=== PATIENT | female | born 1960 | race Caucasian/White ===

== ENCOUNTER → 2016-08-18 | Outpatient (CLI) | payer BC ==
--- NOTE | 2016-08-18 17:37 | US ---
EXAMINATION TYPE: US thyroid st tissue head/neck DATE OF EXAM: 08/18/2016 COMPARISON: NONE CLINICAL HISTORY: E04.1 Thyroid nodule. Prior US at [facility] per patient HX. GLAND SIZE: Right Lobe: 4.5 x 1.7 x 1.4 cm Overall Parenchyma: homogenous Left Lobe: 4.6 x 1.9 x 1.8 cm Overall Parenchyma: homogeneous Isthmus Thickness: 0.4 cm NODULES RIGHT: # of nodules measured on right: 1 1. 0.3 X 0.4 x 0.2 cm hypoechoic cystic nodule at the mid pole with well-defined margins. This nodu le is wider than tall and shows no intranodular vascularity. Prior size: no prior US here LEFT: # of nodules measured on left: 1 1. 1.8 X 1.5 x 1.3 cm isoechoic solid nodule at the mid pole with irregular margins. This nodule is wider than tall and shows no intranodular vascularity. ISTHMUS: # of nodules measured in the isthmus: 1 1. 0.4 X 0.2 x 0.2 cm hypoechoic cystic nodule at the left mid pole with well-defined margins. Thi s nodule is wide as is tall and shows no intranodular vascularity. Bilateral neck scanned, no evidence of lymphadenopathy. IMPRESSION: There is a dominant solid isoechoic oval-shaped nodule in the left thyroid lobe. I think this could b e followed conservatively with repeat ultrasound in 6 months to show stability.
== END | disposition home or self-care (01) ==
LOC: RADUSWWP 16:17
PROVIDERS: ATTEND Otolaryngology
DX: E04.2 Nontoxic multinodular goiter (principal)
CPT/HCPCS: 76536

== ENCOUNTER → 2016-08-20 | Outpatient (CLI) | payer BC ==
[2016-08-20 10:02] LABS: CH 30.9; CHCM 32.1; HCT 46.7 % (34.0-46.0); HDW 2.25; HGB 14.8 gm/dL (11.4-16.0); MCH 30.7 pg (25.0-35.0); MCHC 31.7 g/dL (31.0-37.0); MCV 96.7 fL (80.0-100.0); Mean Platelet Volume 6.7; RBC 4.83 m/uL (3.80-5.40); RDW 12.7 % (11.5-15.5); WBC 5.5 k/uL (3.8-10.6)
[2016-08-20 10:12] LABS: ALT 40 U/L (9-52); AST 31 U/L (14-36); Alkaline Phosphatase 74 U/L (38-126); Anion Gap 10 mmol/L; Blood Urea Nitrogen 12 mg/dL (7-17); Calcium 9.8 mg/dL (8.4-10.2); Carbon Dioxide 30 mmol/L (22-30); Chloride 105 mmol/L (98-107); Cholesterol 190 mg/dL (<200); Glucose 87 mg/dL (74-99); HDL Cholesterol 65 mg/dL (40-60); Non-African American GFR(MDRD) >60 (>60 ml/min/1.73 sqM); Potassium 4.5 mmol/L (3.5-5.1); Sodium 145 mmol/L (137-145); Total Bilirubin 0.4 mg/dL (0.2-1.3); Total Protein 6.9 g/dL (6.3-8.2); Triglycerides 97 mg/dL (<150)
== END | disposition home or self-care (01) ==
LOC: LABWHC1 09:21
PROVIDERS: ATTEND Nurse Practitioner Primary Care
DX: Z00.01 Encounter for general adult medical examination with abnormal findings (principal); I10 Essential (primary) hypertension; E04.1 Nontoxic single thyroid nodule
CPT/HCPCS: 36415; 80053; 80061; 82306; 84439; 84443; 84481; 85027

== ENCOUNTER → 2016-11-01 | Outpatient (CLI) | payer BC ==
--- NOTE | 2016-11-01 14:27 | US ---
EXAMINATION TYPE: US venous doppler duplex LE LT DATE OF EXAM: 11/01/2016 1:42 PM COMPARISON: NONE CLINICAL HISTORY: Pain of left calf M79.662. palpable medial upper calf 4 days no recent injury SIDE PERFORMED: left TECHNIQUE: The lower extremity deep venous system is examined utilizing real time linear array sonog liam with graded compression, doppler sonography and color-flow sonography. VESSELS IMAGED: External Iliac Vein (EIV) Common Femoral Vein Deep Femoral Vein Greater Saphenous Vein * Femoral Vein Popliteal Vein Small Saphenous Vein * Proximal Calf Veins (* superficial vessels) 5.3 x 2.2 x 3.1 non vascular mass in calf at palpable site, at the site of patient's palpable abnorma lity a large mixed echo mass is present. Left Leg: Negative for DVT IMPRESSION: Grayscale, color doppler, spectral doppler imaging performed of the deep veins of the lo wer extremities. There is normal flow, compressibility, vascular waveforms. No evident deep venous thrombosis at or above the left knee. Findings could be related to muscle tear, hematoma, follow-up clinically, consider MRI with and witho ut contrast the left leg for additional evaluation.
== END | disposition home or self-care (01) ==
LOC: RADUSWWP 12:54
PROVIDERS: ATTEND Internal Medicine
DX: M79.662 Pain in left lower leg (principal)

== ENCOUNTER → 2016-11-07 | Outpatient (CLI) | payer BC ==
[2016-11-07 16:31] LABS: Aty Lym Flag Moderate; Basophils % (A) 1 %; CH 31.5; CHCM 33.4; Eosinophils # (A) 0.1 k/uL (0-0.7); Eosinophils % (A) 1 %; HCT 44.2 % (34.0-46.0); HDW 2.38; HGB 14.1 gm/dL (11.4-16.0); Luc # (Auto) 0.72; Luc % (Auto) 9; Lymphocytes # (A) 2.4 k/uL (1.0-4.8); Lymphocytes % (A) 28 %; MCH 30.2 pg (25.0-35.0); MCHC 31.9 g/dL (31.0-37.0); MCV 94.6 fL (80.0-100.0); Mean Platelet Volume 7.9; Monocytes # (A) 0.7 k/uL (0-1.0); Monocytes % (A) 8 %; Neutrophils # (A) 4.6 k/uL (1.3-7.7); Neutrophils % (A) 54 %; RBC 4.67 m/uL (3.80-5.40); RDW 13.4 % (11.5-15.5); WBC 8.5 k/uL (3.8-10.6); WBC (Perox) 7.94
[2016-11-07 16:38] LABS: ALT 32 U/L (9-52); AST 25 U/L (14-36); Alkaline Phosphatase 80 U/L (38-126); Anion Gap 10 mmol/L; Blood Urea Nitrogen 19 mg/dL (7-17); Calcium 10.2 mg/dL (8.4-10.2); Carbon Dioxide 31 mmol/L (22-30); Chloride 101 mmol/L (98-107); Glucose 86 mg/dL (74-99); Non-African American GFR(MDRD) >60 (>60 ml/min/1.73 sqM); Potassium 4.4 mmol/L (3.5-5.1); Sodium 142 mmol/L (137-145); Total Bilirubin 0.4 mg/dL (0.2-1.3); Total Protein 7.9 g/dL (6.3-8.2)
== END | disposition home or self-care (01) ==
LOC: LABWHC1 15:30
DX: M79.605 Pain in left leg (principal)
CPT/HCPCS: 36415; 80053; 85025

== ENCOUNTER → 2016-11-15 | Outpatient (CLI) | payer BC ==
--- NOTE | 2016-11-15 18:03 | CONS ---
CONSULTATION REASON FOR CONSULTATION: Sleep apnea. REFERRING PHYSICIAN: Dr. Calderon. This is a 55-year-old female patient who was reported to have loud snoring. This has been noted by her . The patient also quit smoking on a few occasions. She had been seen by Dr. Calderon, who suggested a sleep evaluation. She goes to bed around 9 p.m., wakes up at 4 a.m. in the morning. She works for the [employer]. 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 She drives from [place] to [place] every day back and forth. She does not fall asleep while driving. After coming home, she does not feel sleepy while watching TV or reading a book. She is able to fulfill her job requirements at the [employer] without having to fall asleep at all. She wakes up tired during the day. However, this is essentially tiredness rather than sleepiness. Her current Hurst score is 6. Denies having any insomnia. No choking or gasping sensation at nighttime. No grinding of the teeth. She has no dry mouth in the morning. No anxiety or panic attacks. No palpitation. No nocturnal heartburn. No seizure activity. PAST MEDICAL HISTORY: Hypertension. PAST SURGICAL HISTORY: D&C. DRUG ALLERGIES: 1. PENICILLIN. 2. POLLEN. MEDICATION: Medication includes: 1. Tere. 2. Amlodipine. 3. Lisinopril. SOCIAL HISTORY: The patient is a nonsmoker. No history of alcoholism. No history of IV drugs. FAMILY HISTORY: Brother has sleep apnea. REVIEW OF SYSTEMS: CONSTITUTIONAL: Negative for recent weight gain or weight loss. No fever, chills or night sweats. HEENT: Positive for snoring. No active allergy symptoms at this point. She has some occasional hoarseness. CARDIOVASCULAR: Negative for angina or chest pain or palpitations. PULMONARY: Negative for cough, sputum production, chest tightness or wheezing. GI: Negative for nausea, vomiting, abdominal pain or GI bleed. : Negative for dysuria, frequency, urgency. MUSCULOSKELETAL: Negative for arthritis. Skin is negative for rash, lesions or ulcers. Psych is negative for anxiety or depression. Rheumatologic is negative. Endocrinologic is negative. PHYSICAL EXAMINATION: CURRENT VITAL SIGNS: BP is 151/91, pulse 77, respirations 16, temperature 98.1, saturation 97% on room air. Weight is 156. Height is 68-1/4 inches. Neck size 15 inches. BMI 23.5. Hurst score is 6. GENERAL APPEARANCE: Calm, comfortable. HEENT: Overbite estimated to be around 1 cm. No crowding of the posterior pharynx. Hurst score is 1. LUNGS: Clear to auscultation. Heart sounds are regular rate and rhythm. Normal S1, S2. No S3, S4. No murmurs. ABDOMEN: Soft, nontender. No organomegaly. No direct tenderness, rebound tenderness or guarding. EXTREMITIES: No edema. No cyanosis or clubbing. Skin is negative for ulcers, wounds or lesions. NEURO: Alert and oriented x3. No focal neurological deficits. SKELETAL: No joint deformities or any active arthritis or kyphoscoliosis. PHYSICAL EXAMINATION: VITAL SIGNS: BP is 151/91, pulse 77, respirations 12 temperature 98.1. Neck size is 15. BMI is 23.5. Hurst score is 6. IMPRESSION: 1. Loud snoring. 2. Chronic fatigue with limited sleepiness. Hurst score is 6. 3. Suspected obstructive sleep apnea. 4. Hypertension. PLAN: 1. Proceed with home sleep study testing. Overall suspicion for severe symptomatic obstructive sleep apnea is quite low in this patient. 2. Implement good sleep hygiene measures. Will continue to follow. MMODL / IJN: [id number] /
== END | disposition home or self-care (01) ==
LOC: SLEEP 14:58
PROVIDERS: ATTEND Internal Medicine Critical Care Medicine
DX: R53.82 Chronic fatigue, unspecified (principal); I10 Essential (primary) hypertension; R06.83 Snoring
CPT/HCPCS: 99211

== ENCOUNTER → 2017-03-01 | Outpatient (CLI) | payer BC ==
--- NOTE | 2017-03-01 15:58 | US ---
EXAMINATION TYPE: US thyroid st tissue head/neck DATE OF EXAM: 03/01/2017 COMPARISON: Thyroid ultrasound August 18, 2016 CLINICAL HISTORY: E04.1 Thyroid nodule. GLAND SIZE: Right Lobe: 5.4 x 1.6 x 1.6 cm Overall Parenchyma: homogenous Left Lobe: 5.3 x 2.2 x 2.0 cm Overall Parenchyma: homogeneous Isthmus Thickness: 0.3 cm NODULES RIGHT: # of nodules measured on right: 1 1. 0.3 X 0.2 x 0.3 cm hypoechoic solid nodule at the mid pole with irregular margins. This nodule is wider than tall and shows no intranodular vascularity. Prior size: 0.3 x 0.4 x 0.2 cm LEFT: # of nodules measured on left: 1 1. 1.8 X 1.9 x 1.8 cm isoechoic solid nodule at the mid pole with poorly defined margins. This nod ule is taller than wide and shows intranodular vascularity. Prior size: 1.8 x 1.5 x 1.3 cm ISTHMUS: # of nodules measured in the isthmus: 1 1. 0.3 X 0.2 x 0.3 cm hypoechoic solid nodule at the mid pole with well-defined margins. This nodu le is wider than tall and shows no intranodular vascularity. Prior size: 0.4 x 0.2 x 0.2 cm Bilateral neck scanned, no evidence of lymphadenopathy. Thyroid is upper limits of normal in size a few nodules redemonstrated, largest solid nodule left thy roid lobe is unchanged in size and appearance. IMPRESSION: Stable 1.9 cm hypoechoic solid nodule left thyroid lobe. No new greater than 1 cm solid or cystic nod ules are seen.
== END | disposition home or self-care (01) ==
LOC: RADUSWWP 15:14
PROVIDERS: ATTEND Otolaryngology
DX: E04.1 Nontoxic single thyroid nodule (principal)
CPT/HCPCS: 76536

== ENCOUNTER → 2017-04-04 | Outpatient (CLI) | payer BC ==
--- NOTE | 2017-04-04 16:27 | PN ---
PROGRESS NOTE This is a 56-year-old female patient diagnosed having moderate to severe obstructive sleep apnea with an AHI of 20, worse in the supine body position. This evaluation was done by a home sleep study that confirmed the diagnosis. Following that, the patient underwent a CPAP titration that was successful, and currently she is on a CPAP pressure of 10 cm of water. Today the patient is coming in for a compliancy check. Despite her appropriate and adequate use of CPAP, she is not seeing a significant difference in her fatigue and sleepiness. I checked her compliancy date and the patient has been averaging around 6.8 hours of CPAP use every night, and her use for more than 4 hours is nearly approaching 100%. His AHI while on treatment is down to 0.3 and her leak factor is 22 L/minute. She is uncomfortable with the AirFit P10 nose pillow and she is seeking other alternatives. One option that she was given by [employer] is the DreamWear nose mask. She is interested in obtaining that and she is also interested in obtaining a surgical evaluation regarding her chronic snoring and obstructive sleep apnea to see if there is any surgical alternative to CPAP therapy. Her current Davidson score is 6. REVIEW OF SYSTEMS: CONSTITUTIONAL: Chronic fatigue and tiredness and sleepiness. HEENT: Loud snoring. No sinus disease. She is a nose breather. LUNGS: No cough, sputum production, or wheezing. CARDIAC: No angina. No palpitation. GI: Negative for nausea, vomiting, abdominal pain or GI bleed. : Negative for dysuria, frequency, urgency. MUSCULOSKELETAL: Negative for any arthritis or joint deformity. SKIN: Negative for any ulcerations or wounds. NEUROLOGIC: There is no dizziness, headaches or any focal neurological deficits. PHYSICAL EXAMINATION: BP is 142/91, pulse 71, respirations 18. Temperature is 97.6. Weight is 161. Davidson score is 6. Saturation 98% on room air. GENERAL APPEARANCE: Calm, comfortable. Head is atraumatic, normocephalic. Mallampati class 2 to 3 with a slight overbite. LUNGS: Clear to auscultation. HEART: Sounds are regular rate and rhythm. Normal S1, S2. No S3, S4. No murmurs. ABDOMEN: Soft, nontender. No organomegaly. EXTREMITIES: No edema. No cyanosis or clubbing. NEUROLOGIC: Alert and oriented x3. PSYCHIATRIC: The patient has appropriate mood and affect. SKIN: Negative for any wounds or ulceration. IMPRESSION: Symptomatic obstructive sleep apnea, moderate in severity, positional; worse in supine body position. Baseline AHI is 20. Currently on CPAP pressure of 10. Treatment has been adequate and the patient has been compliant; however, the clinical response has been suboptimal. The patient thinks that she is not benefitting much from the treatment. PLAN: 1. We will request a surgical evaluation from Paris Gutierrez at [facility]. 2. Continue CPAP therapy; however, I am going to switch her to an automatic CPAP unit with a minimum pressure of 4, maximum pressure of 10, and this will allow the patient to have lower pressures, especially when she is in a sidewise body position. 3. Proceed by giving this patient a DreamWear nose mask. 4. She will see me back in 6 months' time in followup. CARLITA / WOLFGANGN: [id number] /
== END | disposition home or self-care (01) ==
LOC: SLEEP 14:54
PROVIDERS: ATTEND Internal Medicine Critical Care Medicine
DX: G47.33 Obstructive sleep apnea (adult) (pediatric) (principal); Z99.89 Dependence on other enabling machines and devices

== ENCOUNTER → 2017-04-28 | Outpatient (CLI) | payer BC ==
--- NOTE | 2017-05-01 08:21 | MM ---
Reason for exam: screening (asymptomatic). Last mammogram was performed 1 year and 4 months ago. History: Family history of breast cancer in aunt. Taking hormonal contraceptives for 2 years 9 months beginning at age 45. Physical Findings: A clinical breast exam by your physician is recommended on an annual basis and results should be correlated with mammographic findings. MG Screening Mammo w CAD Bilateral CC and MLO view(s) were taken. Prior study comparison: January 02, 2016, bilateral MG screening mammo w CAD. November 01, 2012, bilateral digital screening mammo w/CAD. The breast tissue is heterogeneously dense. This may lower the sensitivity of mammography. There is no discrete abnormality. ASSESSMENT: Negative, BI-RAD 1 RECOMMENDATION: Routine screening mammogram of both breasts in 1 year.
== END | disposition home or self-care (01) ==
LOC: RADMAMWWP 10:15
PROVIDERS: ATTEND Obstetrics & Gynecology
DX: Z12.31 Encounter for screening mammogram for malignant neoplasm of breast (principal); Z80.3 Family history of malignant neoplasm of breast
CPT/HCPCS: 77067

== ENCOUNTER → 2017-06-30 | Outpatient (CLI) | payer BC ==
[2017-06-30 08:38] LABS: HCT 42.3 % (34.0-46.0); HGB 13.6 gm/dL (11.4-16.0); MCH 29.6 pg (25.0-35.0); MCHC 32.1 g/dL (31.0-37.0); MCV 92.3 fL (80.0-100.0); Mean Platelet Volume 7.4; Platelet Count 343 k/uL (150-450); RBC 4.59 m/uL (3.80-5.40); RDW 12.7 % (11.5-15.5); WBC 6.3 k/uL (3.8-10.6)
== END | disposition home or self-care (01) ==
LOC: LABWHC1 07:55
PROVIDERS: ATTEND Obstetrics & Gynecology
DX: E78.00 Pure hypercholesterolemia, unspecified (principal); E07.9 Disorder of thyroid, unspecified; N95.0 Postmenopausal bleeding; Z13.220 Encounter for screening for lipoid disorders; Z13.29 Encounter for screening for other suspected endocrine disorder
CPT/HCPCS: 36415; 80061; 82670; 82947; 83001; 83002; 84443; 85027

== ENCOUNTER → 2017-07-27 | Outpatient (CLI) | payer BC ==
--- NOTE | 2017-07-27 15:16 | XR ---
EXAMINATION TYPE: XR ankle complete RT DATE OF EXAM: 07/27/2017 COMPARISON: NONE HISTORY: Acute right ankle pain TECHNIQUE: Three-view right ankle FINDINGS: Ankle mortise is intact. No displaced fractures are evident. Soft tissues appear within nor mal limits. Achilles tendon calcaneal heel spur is present. Follow-up exam can be performed 7-10 days from acute trauma for continued pain. IMPRESSION: 1. No acute osseous abnormality right ankle.
--- NOTE | 2017-07-27 15:17 | XR ---
EXAMINATION TYPE: XR foot complete RT DATE OF EXAM: 07/27/2017 COMPARISON: NONE HISTORY: Pain in right ankle and tarsal area of foot for 2 weeks TECHNIQUE: Three-view right foot FINDINGS: Right foot is examined in 3 views. Joint spaces appear preserved. No acute fractures are ev ident. Soft tissues appear normal. Achilles tendon calcaneal heel spur is present. There is an os cub oideum, a normal variant. IMPRESSION: 1. No acute osseous abnormality right foot.
== END | disposition home or self-care (01) ==
LOC: RADXRMAIN 14:42
DX: M25.571 Pain in right ankle and joints of right foot (principal); M79.671 Pain in right foot
CPT/HCPCS: 36415; 84550

== ENCOUNTER → 2018-10-02 | Outpatient (CLI) | payer BC ==
--- NOTE | 2018-10-02 15:33 | PN ---
PROGRESS NOTE Jessie is 57, coming in for an annual check regarding obstructive sleep apnea. Note that she had moderate COPD with an AHI of 20, worse in the supine body position. The patient has been on APAP therapy at a minimum pressure of 40, maximum pressure of 10. On today's annual check, the patient has lost around 11 pounds and she is feeling better. The impact factor of sleep apnea treatment has not been that great. As the patient is not having major change in her quality of life. She is not having any significant somnolence or sleepiness off the machine. I checked compliance data and based on a 30 day use, the patient had been averaging around more than 4 hours of CPAP use, around 19 out of the past 30 days. Her average CPAP is around 7.4 hours per night. Leak is at 5 L/minutes. AHI is down to 0.3 while on treatment. As such, the treatment was successful and her AHI is down to 0.3. I also noted that there has been a drop in average pressure used on her APAP machine from 8.1, down to 7.4 over the past 1 year and this is probably attributed to her underlying weight loss. REVIEW OF SYSTEMS: A 14-point review of system was done. Positive findings are mentioned in history of present illness. There is no significant fatigue, tiredness, or sleepiness at this point in time. The snoring is still present and it goes away while she is on the CPAP and the patient is using a Dream Wear nose pillows. No sinus disease and she is a nose breather. No significant heartburn, nausea, or vomiting. No chest pain. No palpitations. No angina, no cough or sputum production. No nausea, vomiting, diarrhea, or abdominal pain. No dysuria, frequency, or urgency. No headaches, no aerophagia. No skin lesions. No ulcerations or wounds. PHYSICAL EXAMINATION: Her current vitals, BP is 133/90, pulse rate 86, respirations 16, temperature 98.0, saturation 98% on room air. Weight is 150, height is 5, 8 and BMI is 22.8. GENERAL APPEARANCE: Calm, comfortable. HEAD:: Atraumatic, normocephalic. NECK: Supple. There is no JVD. There was no neck masses. Mallampati class IV. LUNGS: Clear to auscultation. HEART: Sounds regular rate and rhythm. Normal S1, S2. No S3, S4. No murmurs. ABDOMEN: Soft, nontender. No organomegaly. EXTREMITIES: No edema. No cyanosis or clubbing. NEUROLOGIC: Alert and oriented x3. She is alert and orient x3. There are no focal neurological deficits. PSYCHIATRIC: Negative for anxiety or depression. IMPRESSION: 1. Obstructive sleep apnea moderate in severity. AHI of 20. The patient is on APAP, minimum of 4, maximum of 10. There has been steady drop in the average pressure utilized on the CPAP machine over the past 1 year and based on the compliance data her average pressure is currently down to 7.4. She is well treated with an apnea score of 0.3. 2. No significant hypersomnia. 3. 11 pound weight loss. PLAN: 1. Continue CPAP therapy. 2. Will monitor the average pressure delivered by the APAP machine over the next 12 months. 3. Keep the Dream Wear nose pillows. 4. Improve sleep hygiene measures. 5. Will continue to follow and see me back in a year's time. I suggested that the patient may have a home sleep study at a later stage to assess the presence of sleep apnea and decide accordingly if treatment is needed. MMODL / IJN: [id number] /
== END | disposition home or self-care (01) ==
LOC: SLEEP 09:39
PROVIDERS: ATTEND Internal Medicine Critical Care Medicine
DX: G47.33 Obstructive sleep apnea (adult) (pediatric) (principal); J44.9 Chronic obstructive pulmonary disease, unspecified; Z99.89 Dependence on other enabling machines and devices

== ENCOUNTER → 2021-02-09 | Outpatient (CLI) | payer BC ==
--- NOTE | 2021-02-09 16:46 | PN ---
PROGRESS NOTE 60-year-old female patient with known history of obstructive sleep apnea coming in for an annual check. Baseline AHI is 20 and the patient is currently on an APAP pressure minimum of 4, maximum of 10. Doing well. No specific complaints. 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 No significant weight gain. Dutton score is low at this point and measured to be at 4. Nevertheless, she has chronic fatigue and tiredness. She has diabetes and hypertension as comorbid conditions. I checked the compliance data from her machine and the patient utilizing her machine every night over the past 30 days. She has achieved an average of 5.8 hours of CPAP use per night and her average pressure delivered by the machine is around 7.8 cm of water with a leak of 6 L per minute and AHI is down to 0.3. No headaches. No shortness of breath, angina, palpitation, heartburn or any other issues overnight. Her current vitals are as follows: Blood pressure is 151/78, pulse 68, respirations 16, temperature 97.9, saturation 98% on room air. Height is 5 feet 8 inches, weight is 149, BMI 22.6. General appearance: Calm, comfortable. Head is atraumatic, normocephalic. Neck is supple. No JVD. No goiter. No neck mass. Lungs clear to auscultation. Heart sounds regular rate and rhythm, normal S1, S2. No murmurs. Abdomen: Soft, nontender. No organomegaly. EXTREMITIES: No edema. No cyanosis or clubbing. MEDICATIONS: Lisinopril 40 mg p.o. daily, Norvasc 5 mg p.o. daily, Tere D 180 mg on a p.r.n. basis and multivitamin on a regular basis, 1 tablet a day. IMPRESSION: 1. Obstructive sleep apnea, moderate severe AHI of 20. 2. CPAP therapy with an APAP mode pressure minimum of 4 and 10 maximum. 3. Hypersomnia, recovered. Dutton score is down to 4. 4. Chronic fatigue. PLAN: 1. I checked the patient's smart watch and the patient has adequate sleep architecture. 2. Keep same APAP pressure. 3. Keep same mask interface. 4. Tighter blood pressure control. 5. Continue CPAP therapy and see me back in a few years' time in followup, treatment is successful for now. MMODL / IJN: [id number] /
== END | disposition home or self-care (01) ==
LOC: SLEEP 15:10
PROVIDERS: ATTEND Internal Medicine Critical Care Medicine
DX: G47.33 Obstructive sleep apnea (adult) (pediatric) (principal); R53.82 Chronic fatigue, unspecified

== ENCOUNTER → 2022-01-25 | Outpatient (CLI) | payer BC ==
--- NOTE | 2022-01-25 16:26 | P.PN ---
Progress Note - Text Progress Note Date: 01/25/22 This is a 61-year-old male patient, known history of obstructive sleep apnea with an AHI of 20, coming in for an annual checkup regarding her obstructive sleep apnea. 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 She uses CPAP and she is extremity compliant. She has an APAP machine which is set at a pressure minimum of 4 and a maximum of 10. On today's evaluation, the patient has been utilizing his machine every night on average of 6.3 hours per night and she has used the machine more than 4 hours 27 out of 30 days. The patient's leak is minimal at 4 L/m and the patient is using a dream ball nasal pillow medium size. She is interested in the under the nose mask and this is going to be offered to the patient. The patient has no specific complaints. Average pressure delivered by the machines around 7.7 cm of water which is equivalent to last year's pressures. No chest pain. No heartburn. No shortness of breath and no other new complaints otherwise for now. She has gained around 10 pounds since her last evaluation. Her BP is 139/79 with a pulse of 60 and a respiration of 18 with a temperature 97.0 and a saturation 97% on room air. Weight is 156 and a Jenners score is at 3 The patient appeared well nourished and normally developed. Vital signs as documented. Head exam is unremarkable. No scleral icterus or corneal arcus noted. Neck is without jugular venous distension, thyromegaly, or carotid bruits. Carotid upstrokes are brisk bilaterally. Lungs are clear to auscultation and percussion. Cardiac exam reveals the PMI to be normally sized and situated. Rhythm is regular. First and second heart sounds normal. No murmurs, rubs or gallops. Abdominal exam reveals normal bowel sounds, no masses, no organomegaly and no aortic enlargement. Extremities are nonedematous and both femoral and pedal pulses are normal.Examination of the skin revealed no evidence of significant rashes, suspicious appearing nevi or other concerning lesions.Neurologically, the patient is awake and alert and the patient does not have any focal neurological deficit. Cranial nerves are essentially intact. Assessment Obstructive sleep apnea with an AHI of 20, undergoing successful CPAP therapy Hypertension Sinus ALLERGIES Plan Treatment he may successful Keep the patient on APAP mode Offered the patient a dreamware under the nose mask small size as an alternative Refill the supplies Weight loss Sleep hygiene measures of good Average pressure delivered by the CPAP machine is comparable to last year See him back in one year
== END ==
LOC: SLEEP 15:58
PROVIDERS: ATTEND Internal Medicine Critical Care Medicine
DX: Z53.9 Procedure and treatment not carried out, unspecified reason (principal)